=== PATIENT | female | born 1965 | race Caucasian/White ===

== ENCOUNTER 2017-12-01 05:48 | Day surgery (SDC) | payer BC ==
[2017-12-01] MEDS ORDERED: FENTAnyl 50 MCG/ML VIAL (07:57)
[2017-12-01] MEDS ORDERED: MIDAZOLAM 1 MG/ML 2 ML INJ ×2 (07:57)
== END 2017-12-01 09:55 | disposition home or self-care (01) ==
LOC: GIL 05:48
DX: K21.9 Gastro-esophageal reflux disease without esophagitis (principal); K29.70 Gastritis, unspecified, without bleeding; E11.9 Type 2 diabetes mellitus without complications
CPT/HCPCS: 43239; 82962; 87081

== ENCOUNTER 2018-01-29 10:41 | Day surgery (SDC) | payer BC ==
[2018-01-29] MEDS ORDERED: FENTAnyl 50 MCG/ML VIAL (15:05)
[2018-01-29] MEDS ORDERED: MIDAZOLAM 1 MG/ML 2 ML INJ ×3 (15:05)
== END 2018-01-29 17:56 | disposition home or self-care (01) ==
LOC: GIL 10:41
DX: Z12.11 Encounter for screening for malignant neoplasm of colon (principal); K64.8 Other hemorrhoids; K64.4 Residual hemorrhoidal skin tags; E11.9 Type 2 diabetes mellitus without complications
CPT/HCPCS: 45378; 84703

== ENCOUNTER 2018-12-14 10:53 | Emergency (ER) | payer BC ==
[2018-12-14] MEDS: IBUPROFEN 600 MG TAB PO (12:06)
[2018-12-14 12:21] LABS: ADD MAN DIFF? NO
[2018-12-14 12:28] LABS: WHITE BLOOD COUNT 9.7 10^3/ul (4.8-10.8)
[2018-12-14 12:28] LABS: BASOPHILS % 0.2 % (0.0-2.0); EOSINOPHILS # 0.1 10^3/ul (0.0-0.5); EOSINOPHILS % 1.1 % (0.0-7.0); HEMATOCRIT 36.7 % (37.0-47.0); HEMOGLOBIN 11.6 g/dl (12.0-16.0); LYMPHOCYTES # 3.2 10^3/ul (0.8-2.9); LYMPHOCYTES % 33.3 % (15.0-51.0); MEAN CORPUSCULAR HEMOGLOBIN 28.1 pg (29.0-33.0); MEAN CORPUSCULAR HGB CONC 31.6 g/dl (32.0-37.0); MEAN CORPUSCULAR VOLUME 88.9 fl (82.0-101.0); MEAN PLATELET VOLUME 8.8 fl (7.4-10.4); MONOCYTE # 0.6 10^3/ul (0.3-0.9); MONOCYTES % 6.1 % (0.0-11.0); NEUTROPHIL # 5.7 10^3/ul (1.6-7.5); NEUTROPHILS % 59.2 % (39.0-77.0); PLATELET COUNT 466 10^3/UL (140-415); RED BLOOD COUNT 4.13 10^6/ul (4.20-5.40); RED CELL DISTRIBUTION WIDTH 13.3 % (11.5-14.5)
[2018-12-14 13:29] LABS: ALANINE AMINOTRANSFERASE 23 IU/L (13-69); ALBUMIN 4.5 g/dl (3.3-4.9); ALBUMIN/GLOBULIN RATIO 1.09; ALKALINE PHOSPHATASE 87 IU/L (42-121); ANION GAP 12 (5-13); ASPARTATE AMINO TRANSFERASE 22 IU/L (15-46); BILIRUBIN,INDIRECT 0.1 mg/dl (0-1.1); BILIRUBIN,TOTAL 0.1 mg/dl (0.2-1.3); BLOOD UREA NITROGEN 10 mg/dl (7-20); CALCIUM 10.2 mg/dl (8.4-10.2); CARBON DIOXIDE 26 mmol/L (21-31); CHLORIDE 102 mmol/L (97-110); CREATININE 0.62 mg/dl (0.44-1.00); Estimated GFR > 60 mL/min (>60); GLUCOSE 122 mg/dl (70-220); POTASSIUM 4.5 mmol/L (3.5-5.1); SODIUM 140 mmol/L (135-144); TOTAL PROTEIN 8.6 g/dl (6.1-8.1)
[2018-12-14 13:36] LABS: MONOTEST Negative (NEG)
[2018-12-14 13:45] LABS: FREE THYROXINE INDEX (Calc) 3.04 ug/ml (0.65-3.89); T4 (THYROXINE) 9.8 ug/dl (5.5-11.0)
[2018-12-14 13:59] LABS: THYROID STIMULATING HORMONE 0.259 MIU/L (0.465-4.680)
== END 2018-12-14 14:10 | disposition home or self-care (01) ==
LOC: FTE 10:53
DX: E06.9 Thyroiditis, unspecified (principal); E11.9 Type 2 diabetes mellitus without complications; Z79.84 Long term (current) use of oral hypoglycemic drugs
CPT/HCPCS: 76536; 80053; 84436; 84443; 84479; 85025; 86308; 99284-25